=== PATIENT | female | born 1945 | race Caucasian/White ===

== ENCOUNTER 2023-06-05 13:05 | Observation (INO) | payer OTHER ==
[2023-06-05] MEDS ORDERED: ACETAMINOPHEN INJECTION 100 ML IVPB ONE (14:37)
[2023-06-05] MEDS ORDERED: ONDANSETRON 4 MG/2 ML VIAL ONE (14:37)
[2023-06-05] MEDS: ACETAMINOPHEN 1000 MG/100 ML BAG IVPB ONE (14:40)
[2023-06-05] MEDS: ONDANSETRON 4 MG/2 ML VIAL IVPUSH ONE (14:40)
[2023-06-05 14:43] LABS: BASO % 0.8 % (0-2.0); EPI CELLS >36 /uL (0-25.1); HEMATOCRIT 40.7 % (32.4-45.2); HYALINE CASTS 3 /uL (0-3.1); LYMPH % 37.2 % (8-40); MCH 27.8 pg (25.7-33.7); MEAN CELL VOLUME 86.8 fl (80-96); MEAN PLT VOLUME 8.1 fl (7.5-11.1); MONO % 9.1 % (3.8-10.2); NEUT % 52.9 % (42.8-82.8); PLATELET COUNT 445 10^3/uL (134-434); RBC 4.69 M/mm3 (3.60-5.2); RDW 15.6 % (11.6-15.6); URINE APPEARANCE TURBID; URINE BACTERIA 662 /uL (0-1359); URINE BILIRUBIN 1+ (NEGATIVE); URINE COLOR DK YELLOW; URINE GLUCOSE (UA) TRACE (NEGATIVE); URINE KETONE TRACE (NEGATIVE); URINE LEUK ESTERASE 2+ (NEGATIVE); URINE NITRITE NEGATIVE (NEGATIVE); URINE PROTEIN 2+ (NEGATIVE); URINE RBC 17 /uL (0-23.9); URINE UROBILINOGEN 0.2 mg/dL (0.2-1.0); URINE WBC 1254 /uL (0-25.8); WHITE BLOOD COUNT 8.3 K/mm3 (4.0-10.0)
[2023-06-05 14:45] LABS: INR 1.08 (0.83-1.09); PROTHROMBIN TIME (PATIENT) 12.5 SEC (9.7-13.0)
[2023-06-05 14:47] LABS: ACTIVATED PTT 28.4 SECONDS (25.2-36.5)
[2023-06-05 15:07] LABS: CHLORIDE 109 mmol/L (98-107); SODIUM 133 mmol/L (136-145)
[2023-06-05 15:08] LABS: CALCIUM 8.9 mg/dL (8.5-10.1)
[2023-06-05 15:09] LABS: ALBUMIN 3.6 g/dl (3.4-5.0); BLOOD UREA NITROGEN 40.7 mg/dL (7-18); CO2 24 mmol/L (21-32); GLUCOSE,RANDOM 151 mg/dL (74-106); MAGNESIUM 2.4 mg/dL (1.8-2.4)
[2023-06-05 15:12] LABS: CREATININE 2.5 mg/dL (0.55-1.3)
[2023-06-05 15:14] LABS: BILIRUBIN,TOTAL 0.7 mg/dL (0.2-1); TOT PROT 9.1 g/dl (6.4-8.2)
[2023-06-05 15:15] LABS: ALK PHOS 124 U/L (45-117); ANION GAP -1 mmol/L (4-13); SGOT/AST 275 U/L (15-37); SGPT/ALT 176 U/L (13-61)
[2023-06-05] MEDS ORDERED: CEFTRIAXONE 1 GM/50 ML BAG ONE (15:28)
[2023-06-05] MEDS: CEFTRIAXONE 1 GM in DEXTROSE 5%-WATER - 100 ML IVPB ONE (15:33)
[2023-06-05] MEDS: LACTATED RINGERS SOLUTION 1000 ML INFUS.BAG IV ONE (16:00)
[2023-06-05] MEDS: BENZONATATE 200 MG CAPSULE PO ONE (17:35)
[2023-06-05 18:02] LABS: POTASSIUM 4.6 mmol/L (3.5-5.1)
[2023-06-05 18:05] LABS: ALBUMIN 3.1 g/dl (3.4-5.0); BLOOD UREA NITROGEN 39.2 mg/dL (7-18); CALCIUM 8.5 mg/dL (8.5-10.1); MAGNESIUM 2.1 mg/dL (1.8-2.4)
[2023-06-05 18:08] LABS: CREATININE 2.4 mg/dL (0.55-1.3)
[2023-06-05 18:10] LABS: BILIRUBIN,TOTAL 0.4 mg/dL (0.2-1)
[2023-06-05 18:35] LABS: TOT PROT 6.9 g/dl (6.4-8.2)
[2023-06-05] MEDS: LACTATED RINGERS SOLUTION 1,000 ML/1,000 ML INFUS.BAG IV SCH (20:20)
[2023-06-05 21:34] LABS: URINE UREA NITROGEN 144 mg/dL (350-1000)
[2023-06-05] MEDS ORDERED: HEPARIN NA (PORCINE) 5,000 UNITS/ML 1ML VIAL ONE (23:20)
[2023-06-05] MEDS: HEPARIN NA (PORCINE) 5,000 UNITS/ML 1ML VIAL SQ SCH (23:28)
[2023-06-05] MEDS: INSULIN ASPART SLIDING SCALE (NOVOLOG) 1 VIAL SQ SCH (23:28)
[2023-06-06] MEDS ORDERED: HEPARIN NA (PORCINE) 5,000 UNITS/ML 1ML VIAL ONE (05:50)
[2023-06-06 07:04] LABS: HEMATOCRIT 32.4 % (32.4-45.2); HEMOGLOBIN 10.4 GM/dL (10.7-15.3); MCH 27.9 pg (25.7-33.7); MCHC 32.1 g/dl (32.0-36.0); MEAN CELL VOLUME 86.9 fl (80-96); MEAN PLT VOLUME 8.1 fl (7.5-11.1); PLATELET COUNT 288 10^3/uL (134-434); RBC 3.73 M/mm3 (3.60-5.2); RDW 15.1 % (11.6-15.6); WHITE BLOOD COUNT 5.4 K/mm3 (4.0-10.0)
[2023-06-06 07:18] LABS: POTASSIUM 4.6 mmol/L (3.5-5.1)
[2023-06-06 07:20] LABS: CALCIUM 8.8 mg/dL (8.5-10.1)
[2023-06-06 07:21] LABS: ALBUMIN 2.9 g/dl (3.4-5.0); BLOOD UREA NITROGEN 35.6 mg/dL (7-18); MAGNESIUM 1.9 mg/dL (1.8-2.4)
[2023-06-06] MEDS ORDERED: LEVOTHYROXINE NA 100 MCG TABLET (FP) ONE (07:22)
[2023-06-06 07:24] LABS: CREATININE 1.7 mg/dL (0.55-1.3); PHOSPHOROUS 3.6 mg/dL (2.5-4.9)
[2023-06-06 07:25] LABS: TOT PROT 6.7 g/dl (6.4-8.2)
[2023-06-06 07:26] LABS: BILIRUBIN,TOTAL 0.4 mg/dL (0.2-1)
[2023-06-06] MEDS: LEVOTHYROXINE NA 100 MCG TABLET (FP) PO SCH (07:50)
[2023-06-06] MEDS: LACTATED RINGERS SOLUTION 1,000 ML/1,000 ML INFUS.BAG IV SCH ×2 (07:53→13:50)
[2023-06-06] MEDS ORDERED: PANTOPRAZOLE 20 MG TABLET PO ONE (10:01)
[2023-06-06] MEDS: PANTOPRAZOLE 20 MG TABLET PO SCH (10:11)
[2023-06-06] MEDS ORDERED: ATENOLOL 50 MG TABLET (FP) ONE (11:18)
[2023-06-06] MEDS: ATENOLOL 50 MG TABLET (FP) PO SCH (11:22)
[2023-06-06] MEDS: HEPARIN NA (PORCINE) 5,000 UNITS/ML 1ML VIAL SQ SCH (14:31)
[2023-06-06] MEDS ORDERED: CEFTRIAXONE 1 GM in DEXTROSE 5%-WATER - 50 ML IVPB SCH (15:00)
[2023-06-06 15:32] VITALS: RESP 18
[2023-06-06] MEDS: INSULIN ASPART SLIDING SCALE (NOVOLOG) 1 VIAL SQ SCH (16:25)
[2023-06-06] MEDS: SODIUM CHLORIDE 0.45% 1,000 ML IV SCH (16:31)
[2023-06-06 19:52] VITALS: BMI 34.3
[2023-06-07] MEDS: LEVOTHYROXINE NA 100 MCG TABLET (FP) PO SCH (06:52)
[2023-06-07 09:29] VITALS: BP 128/75; PULSE 76; TEMP 99
[2023-06-07] MEDS: PANTOPRAZOLE 20 MG TABLET PO SCH (09:29)
[2023-06-07 09:58] LABS: HEMATOCRIT 32.8 % (32.4-45.2); HEMOGLOBIN 10.7 GM/dL (10.7-15.3); MCH 28.1 pg (25.7-33.7); MCHC 32.6 g/dl (32.0-36.0); MEAN CELL VOLUME 86.3 fl (80-96); MEAN PLT VOLUME 8.2 fl (7.5-11.1); PLATELET COUNT 313 10^3/uL (134-434); RBC 3.79 M/mm3 (3.60-5.2); RDW 14.9 % (11.6-15.6); WHITE BLOOD COUNT 4.2 K/mm3 (4.0-10.0)
[2023-06-07 10:41] LABS: POTASSIUM 4.3 mmol/L (3.5-5.1)
[2023-06-07 10:59] LABS: CALCIUM 8.8 mg/dL (8.5-10.1)
[2023-06-07 11:00] LABS: ALBUMIN 2.9 g/dl (3.4-5.0); BLOOD UREA NITROGEN 21.8 mg/dL (7-18); MAGNESIUM 1.9 mg/dL (1.8-2.4)
[2023-06-07 11:03] LABS: PHOSPHOROUS 2.3 mg/dL (2.5-4.9)
[2023-06-07 11:05] LABS: TOT PROT 6.8 g/dl (6.4-8.2)
[2023-06-07 11:06] LABS: BILIRUBIN,TOTAL 0.4 mg/dL (0.2-1)
[2023-06-07] MEDS: NAPH,MB-DB/K PH,MBDB POWDER PACKET PO SCH (11:55)
== END 2023-06-07 13:04 | disposition home or self-care (01) ==
LOC: JER 13:05 → JERBED 15:22 → J5S 06-06 12:45
PROVIDERS: ADMIT Internal Medicine; ATTEND Internal Medicine
PROC: 3E033NZ Introduction of Analgesics, Hypnotics, Sedatives into Peripheral Vein, Percutaneous Approach (ICD-10-PCS; principal; 2023-06-05)
PROC: 3E03329 Introduction of Other Anti-infective into Peripheral Vein, Percutaneous Approach (ICD-10-PCS; 2023-06-05)
PROC: 3E023GC Introduction of Other Therapeutic Substance into Muscle, Percutaneous Approach (ICD-10-PCS; 2023-06-05)
PROC: 3E013VG Introduction of Insulin into Subcutaneous Tissue, Percutaneous Approach (ICD-10-PCS; 2023-06-05)
PROC: 3E0337Z Introduction of Electrolytic and Water Balance Substance into Peripheral Vein, Percutaneous Approach (ICD-10-PCS; 2023-06-05)
DX: N17.9 Acute kidney failure, unspecified (principal); E86.0 Dehydration; I10 Essential (primary) hypertension; E78.5 Hyperlipidemia, unspecified; E11.9 Type 2 diabetes mellitus without complications; E03.9 Hypothyroidism, unspecified; K21.9 Gastro-esophageal reflux disease without esophagitis; K52.9 Noninfective gastroenteritis and colitis, unspecified; Z90.49 Acquired absence of other specified parts of digestive tract; R07.89 Other chest pain; R74.01 Elevation of levels of liver transaminase levels
CPT/HCPCS: 0241U-QW; 36415; 71046-TC-FY; 80053; 81003; 82550; 82962; 83735; 84100; 84300; 84484; 84540; 85025; 85027; 85610; 85730; 87086; 93005; 93010; 96361; 96365; 96372; 96375; 99285-25; G0378; J0131; J1644